=== PATIENT | male | born 1995 | race Two or more races ===

== ENCOUNTER 2018-10-24 02:59 | Emergency (ER) | payer MEDICAID ==
[~2018-10-24] VITALS: Ht 175.3 cm; Wt 72.6 kg
--- NOTE | 2018-10-24 03:20 | NUR ---
BIBS FOR C/O "HEADACHE, CHEST PAIN AND PENIS PAIN" . PT APEARS NOT A VERY GOOD HYSTORIAN. TALKING TO HIMSELF OR SAYING WORDS THAT DO NOT MAKE SENSE MIXED IN ARGENTINE AND MACEDONIAN,. PT WAS PLACED ON A MONITOR ,VSS. WILL CONT TO MONITOR ,
[2018-10-24] MEDS ORDERED: OLANZAPINE 5 MG TABLET ONE (03:29)
[2018-10-24] MEDS ORDERED: CEFTRIAXONE 1 G VIAL IM ONE (03:30)
[2018-10-24] MEDS ORDERED: ASPIRIN 81 MG TAB.CHEW PO ONE (03:30)
[2018-10-24] MEDS ORDERED: OLANZAPINE 5 MG TABLET PO ONE (03:30)
[2018-10-24] MEDS ORDERED: ASPIRIN 81 MG TAB.CHEW ONE (03:30)
[2018-10-24] MEDS ORDERED: AZITHROMYCIN 250 MG TABLET PO ONE (03:30)
[2018-10-24 03:48] LABS: BASOPHILS # (AUTO) 0.1 /CMM (0.0-0.2); BASOPHILS % (AUTO) 0.7 % (0.0-2.0); EOSINOPHILS % (AUTO) 2.5 % (0.0-6.0); HEMATOCRIT 47 % (39-51); HEMOGLOBIN 15.8 g/dL (13.5-17.5); LYMPHOCYTES # (AUTO) 1.8 /CMM (0.8-4.8); LYMPHOCYTES % (AUTO) 22.4 % (20.0-44.0); MEAN CORPUSCULAR HGB CONC 34 g/dl (31.0-36.0); MEAN CORPUSCULAR VOLUME 95 fL (80-96); MONOCYTES # (AUTO) 0.9 /CMM (0.1-1.30); MONOCYTES % (AUTO) 11.2 % (2.0-12.0); NEUTROPHILS # (AUTO) 5.1 /CMM (1.8-8.9); NEUTROPHILS % (AUTO) 63.2 % (43.0-81.0); PLATELET COUNT (AUTO) 241 /CMM (150-450); RED BLOOD CELL COUNT(AUTO) 4.92 MIL/uL (4.5-6.0); WHITE BLOOD COUNT (AUTO) 8.1 K/uL (4.3-11.0)
[2018-10-24] MEDS ORDERED: AZITHROMYCIN 250 MG TABLET ONE ×2 (03:52→03:55)
[2018-10-24 03:53] LABS: CALCIUM, SERUM 9.3 mg/dL (8.5-10.1); CARBON DIOXIDE 32 mmol/L (21-32); CHLORIDE 102 mmol/L (98-107); CREATININE 0.8 mg/dL (0.6-1.3); GLUCOSE 60 mg/dL (74-106); POTASSIUM 3.2 mmol/L (3.5-5.1); SODIUM SERUM 141 mmol/L (136-145); UREA NITROGEN, BLOOD 21 mg/dL (7-18)
[2018-10-24 03:53] LABS: APPEARANCE,URINE Cloudy (CLEAR); BILIRUBIN,URINE SMALL (NEGATIVE); BLOOD, URINE Moderate Ery/uL (NEGATIVE); COLOR,URINE Yellow (YELLOW); KETONES,URINE Negative (NEGATIVE); LEUKOCYTE ESTERASE ,URINE Moderate (NEGATIVE); NITRITE, URINE Negative (NEGATIVE); PH,URINE 5.5 (5.0-8.0); PROTEIN,URINE 100 mg/dl (NEGATIVE); UGLUCOSE Negative (NEGATIVE); UROBILINOGEN,URINE 0.2 EU/dL (0.2)
[2018-10-24 03:56] LABS: ALCOHOL, BLOOD 6 mg/dL (0-0)
[2018-10-24 03:57] LABS: ACETAMINOPHEN 0 ug/ml (10-30); SALICYLATE < 0.2 mg/dL (2.8-20.0)
[2018-10-24 03:59] LABS: ALANINE AMINOTRANSFERASE 29 U/L (12-78); ALKALINE PHOSPHATASE 103 U/L (46-116); ASPARTATE AMINOTRANSFERASE 33 U/L (15-37); BILIRUBIN,DIRECT 0.2 mg/dL (0.0-0.2); BILIRUBIN,TOTAL 1.3 mg/dL (0.2-1.0); TOTAL PROTEIN, SERUM 7.7 g/dL (6.4-8.2)
[2018-10-24] MEDS ORDERED: CEFTRIAXONE 1 G VIAL ONE (04:16)
--- NOTE | 2018-10-24 04:40 | NUR ---
PT IN BED RESTING COMFORATABLY. VSS.
[2018-10-24 05:01] LABS: BACTERIA,URINE Few /HPF (None Seen); SQUAMOUS EPITHELIAL CELL,UR Rare /HPF (None Seen); WBC,URINE TOO NUMEROUS TO COUN /HPF (0-3)
--- NOTE | 2018-10-24 06:08 | NUR ---
Patient is resting comfortably in bed with eyes closed. Easily aroused. VSS
--- NOTE | 2018-10-24 06:27 | NUR ---
SIZE MAKER AT THE BED SIDE FOR TROPONIN DRAW
--- NOTE | 2018-10-24 07:35 | NUR ---
REPORT RECEIVED FROM CHUCHO MESSER FOR [facility]. PT IN BED ASLEEP, EASILY AROUSABLE BY VOICE. HOOKED TO MONITOR. KEPT SAFE WARM AND COMFORTABLE
--- NOTE | 2018-10-24 09:32 | NUR ---
DARREN AYON AT BEDSIDE
--- NOTE | 2018-10-24 09:36 | NUR ---
PT DENIES HOMELESSNESS, ADMISSIONS DEPT VERIFIED ADDRESS. REQUESTS TAPCARD. SW AWARE.
--- NOTE | 2018-10-24 09:54 | NUR ---
Social service consult requested by Dr. Jerome for possible homelessness. Pt. is a 22 year old male who came to [facility] ED with multiple complaints. SW met with pt. bedside. Pt. is alert and oriented x 3. Pt. appears dirty and disheveled. Pt. has a tattoo on his right side of his neck and a heart tattoo above his right eyebrow. Pt. is hostile when answering questions. Pt. denies being homeless and states he resides at [address] [facility]. Address was verified by title coordinator Subha. Pt. refuses to give an emergency contact. Pt's toxicology showed positive for methamphetamines, however when SW asked him about drug use, pt. adamantly denies using drugs. Pt. stated, " I am on summary probation and I do not check in with my traffic officer." Pt. refuses to give his traffic officer's contact information. SW offered pt. drug rehabilitation referrals/resources, however pt. declined. Pt. is wanting a TAP card to go back home. AYDE Stephens is aware of pt. needing a TAP card. Pt. denies suicidal and homicidal ideations and visual/auditory hallucinations at this time. No other social service needs are requested at this time. SW is available, if needed.
--- NOTE | 2018-10-24 11:50 | NUR ---
IV removed. Catheter intact and site benign. Pressure and 4x4 applied to site. No bleeding noted.Patient discharged to home in stable condition. Written and verbal after care instructions given. Patient verbalizes understanding of instruction.
[2018-10-24 11:52] VITALS: BP 91/49
== END 2018-10-24 11:53 | disposition home or self-care (01) ==
LOC: ER 03:03
DX: R07.89 Other chest pain (principal); N48.1 Balanitis; F15.10 Other stimulant abuse, uncomplicated; J45.909 Unspecified asthma, uncomplicated; F17.200 Nicotine dependence, unspecified, uncomplicated; F12.10 Cannabis abuse, uncomplicated; Z71.6 Tobacco abuse counseling
CPT/HCPCS: 36415; 71045; 80048; 80076; 80307; 80329; 81001; 84484 ×2; 85025; 87077; 87086; 87491; 87591; 93005; 96372; 99284; 99406; J0696; 80305; 81000-TC; G0480